=== PATIENT | female | born 1995 | race Caucasian/White ===

== ENCOUNTER → 2018-03-16 19:39 | Observation (INO) ==
--- NOTE | 2018-03-16 17:18 | OB/GYN Progress Note ---
Date of Encounter: 03/16/18 Time of Encounter: 17:11 - Assessment and Plan (1) 30 weeks gestation of Current Visit: Yes Status: Acute 4 hour monitoring Beside ultrasound by Dr Rao - [facility] IV fluid bolus + blood type Discharge home with PTL precautions Follow up in office with routine prental care and PRN (2) Fall Current Visit: Yes Status: Acute Qualifiers: Encounter type: initial encounter Qualified Code(s): W19.XXXA - Unspecified fall, initial encounter Subjective - Subjective Principal diagnosis: Fall at 1330 today Interval history: Ms Hobson is a at 30 weeks and 4 days that presents to triage with c/o a fall at 1330. She states that she did NOT hit her abdomen on her fall and landed on her hands and knees. She denies any contractions, bleeding, vaginal discharge, leaking of fluid, and headaches/visual disturbances. She denies any pain. She states positive movement. She has seen by Dr Weaver for her and denies any problems with this . 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 Pending 48 hour holter monitor. Antepartum ROS: movement normal Objective - Vital Signs Vital Signs: Intake and Output 03/16/18 03/16/18 03/16/18 07:59 15:59 23:59 Other: Weight 61.5 kg Patient Weight 03/16/18 23:59 Weight 61.5 kg - Exam FHR: auscultation normal, category 1 FHR comments: category I 145 baseline irregular infrequent contractions. Auscultation: bilateral: normal Abdomen: Present: normal appearance, soft, gravid Uterus: Present: normal. Absent: firm, tenderness
[~2018-03-16 19:39] MED LIST: Ringers Solution, Lactated 1,000 ML IVC ONE; Ringers Solution, Lactated 1,000 ML ONE; Terbutaline 1 MG/ML VIAL SQ ONE
== END | disposition home or self-care (01) ==
LOC: 1NENULAB
PROVIDERS: ADMIT Advanced Practice Midwife; ATTEND Advanced Practice Midwife

== ENCOUNTER 2018-05-17 03:45 | Inpatient (IN) ==
[2018-05-17] MEDS ORDERED: Metoclopramide 10 MG/2 ML VIAL IVP PRN (03:56)
[2018-05-17] MEDS ORDERED: Naloxone 0.4 MG/ML INJ IVP PRN (03:56)
[2018-05-17] MEDS ORDERED: *HR* Nalbuphine 10 MG/ML AMPUL IVP PRN (03:56)
[2018-05-17] MEDS ORDERED: Famotidine 20 MG/2 ML VIAL IVP PRN (03:56)
[2018-05-17 04:35] LABS: Basophils % 0.3 %; Eosinophils # 0.1 K/mcL (0.0-0.6); Hematocrit 31.6 % (35.3-44.9); Hemoglobin 10.4 g/dL (11.5-15.4); Immature Granulocytes % 0.4 % (0-4); Lymphocytes # 1.9 K/mcL (0.6-4.6); Lymphocytes % 28.3 %; Mean Corpuscular HGB Conc 32.9 g/dL (31.6-35.5); Mean Corpuscular Hemoglobin 29.5 pg (28.0-33.3); Mean Corpuscular Volume 89.8 fL (83.0-100.0); Mean Platelet Volume 11.1 fL (9.4-12.4); Monocytes # 0.5 K/mcL (0.0-1.3); Monocytes % 7.9 %; Neutrophils # 4.2 K/mcL (1.6-8.9); Platelet Count 167 K/mcL (140-400); Red Blood Count 3.52 M/mcL (3.82-4.97); Red Cell Distribution Width 15.5 % (11.5-14.5); Segmented Neutrophils % 62.1 %
[2018-05-17] MEDS: miSOPROStol 25 MCG TABLET PO PRN ×2 (04:40→09:01)
[2018-05-17 05:21] LABS: Amphetamine Screen,Urine Negative ng/mL (Cutoff=1000); Barbiturate Screen,Urine Negative ng/mL (Cutoff=200); Benzodiazepines Screen,Urine Negative ng/mL (Cutoff=200); Cannabinoid Screen,Urine Negative ng/mL (Cutoff = 50); Cocaine Screen,Urine Negative ng/mL (Cutoff= 300); Opiate Screen,Urine Negative ng/mL (Cutoff=300); Phencyclidine Screen,Urine Negative ng/mL (Cutoff=25)
--- NOTE | 2018-05-17 07:22 | OB/GYN History & Physical ---
Date of Encounter: 05/17/18 Time of Encounter: 07:16 Assessment and Plan (1) 39 weeks gestation of Current visit: Yes Status: Acute Admit for elective IOL. GBS negative. Cytotec at 0440. Epidural when requested. Anticipate . History of Present Illness Chief complaint: IOL HPI: Ms. Hobson is a 22 year old female presenting at 39w3d for schedule IOL. This has been complicated by intermittent episodes of tachycardia for which she had a holter monitor that was normal. She was diagnosed with [id number] at some point in the past. She reports dizziness when she is tachycardic. No other complications. No complaints this am. Good FM. Blood type A positive Rubella immune Serologies negative GBS negative Past Med Surg Social Fam HX - Past Medical History Medical history: non-contributory, cancer Additional medical history: melanoma (2012) Psychiatric history: no psych history - Past Surgical History Additional surgical history: lymph nodes removed from right side leg - Social History Smoking Status: Never smoker Smokeless Tobacco Status: No Alcohol use: none Drug use: none - Family History Mother Family Member Ethnicity: Non- Living Status: Still Living Hx Family Cardiac Disorders: Yes (HTN) Hx Family Respiratory Disorders: No Hx Family Cancer: No Hx Family GI Disorders: No Hx Family Endocrine Disorder: No Hx Family Neuromuscular Disorders: No Hx Family Neurologic Disorders: No Hx Family HEENT Disorders: No Hx Family Autoimmune Disorders: No Obstetrical History - Pregnancies : 1 Medications and Allergies Chewable Iron 30 mg Tablet 1 mg PO DAILY 03/16/18 [History] One Tablet 1 mg PO DAILY 03/16/18 [History] Allergy/AdvReac Type Severity Reaction Status Date / Time sulfamethoxazole Allergy Rash Verified 05/17/18 04:02 [From Bactrim] trimethoprim [From Bactrim] Allergy Rash Verified 05/17/18 04:02 Review of System OB All systems PM: reviewed and no additional remarkable complaints except as stated Exam - Constitutional Constitutional: well developed, well nourished - Lungs Respiratory exam: CTAB - Cardiovascular Cardiovascular exam: RRR - Abdomen Abdomen: Present: gravid, non tender - Extremities Extremities exam: normal inspection - Cervix Dilation: 1 Effacement: 40 Station: -2 - Anus/Rectum Anus/Rectum: Present: normal perianal skin Results Result Diagrams: 05/17/18 04:00 Abnormal lab results RBC 3.52 M/mcL (3.82-4.97) L 05/17/18 04:00 Hgb 10.4 g/dL (11.5-15.4) L 05/17/18 04:00 Hct 31.6 % (35.3-44.9) L 05/17/18 04:00 RDW 15.5 % (11.5-14.5) H 05/17/18 04:00 All other labs normal. - VTE Reasons for not Prescribing Prophylaxis: Treatment not Indicated - Low risk for VTE
--- NOTE | 2018-05-17 08:28 | OB Labor Progress Note ---
Date of Encounter: 05/17/18 Time of Encounter: 08:25 Labor Progress Note - Subjective Subjective: Patient resting comfortably in bed. - Vital Signs Vital Signs: VSS - Heart Tones Heart Tones: Baseline 140 - cat 2 tracing. Moderate variability, no accels no decels. - Mutual Mutual: uterine irritability, uterus palpates soft - Interventions Interventions: Intracervical copeladn unsuccessful. Patient and fetus tolerated well. - Plan Physician notified: No Plan: Continue routine labor management GBS negative Second dose cytotec Consider Intracervical copeland placed Patient may have nubain/epidural upon request Anticipate vaginal delivery POC per consult with Dr Cunha
--- NOTE | 2018-05-17 11:14 | OB Labor Progress Note ---
Date of Encounter: 05/17/18 Time of Encounter: 11:13 Labor Progress Note - Subjective Subjective: Patient states she is feeling her contractions; declines pain medication at this time - Vital Signs Vital Signs: VSS - Cervix Cervix: 1-2/80-90/-2 - Heart Tones Heart Tones: 150 cat 1 tracing - [place]: Irregular contractions - Plan Physician notified: No Plan: Continue routine labor management GBS negative Consider pitocin/AROM Patient may have nubain/epidural upon request Anticipate vaginal delivery POC per consult with Dr Cunha
[2018-05-17] MEDS ORDERED: Epidural Premix (fent/bupiv) 110 ML EP SCH (15:00)
--- NOTE | 2018-05-17 15:44 | OB Labor Progress Note ---
Date of Encounter: 05/17/18 Time of Encounter: 15:42 Labor Progress Note - Subjective Subjective: Patient resting comfortably in bed - Vital Signs Vital Signs: VSS - Cervix Cervix: 1-2/80/-2 moderate softness and moderate position - Heart Tones Heart Tones: 120 FHTs baseline cat 2 tracing; no accels no decles moderate variability - [place]: Contractions every 2-4 minutes - Interventions Interventions: Intracervical copeland placed without difficulty; patient and fetus tolerated well. intracervical inflated with 60cc sterile water - Plan Physician notified: No Plan: Continue routine labor management GBS negative Consider pitocin/AROM after cervical copeland displaced Patient may have nubain/epidural upon request Anticipate vaginal delivery POC per consult with Dr Cunha
[2018-05-17] MEDS: Ondansetron 4 MG/2 ML VIAL IVP PRN (16:28)
[2018-05-17] MEDS: Ringers Solution, Lactated 1,000 ML IVC SCH ×2 (18:21→20:28)
[2018-05-17] MEDS ORDERED: Bupivacaine-MPF 0.25% 10 ML VIAL EP ONE (18:27)
[2018-05-17] MEDS ORDERED: *HR* FentaNYL (PF) 100 MCG/2 ML VIAL EP ONE (18:27)
[2018-05-17] MEDS ORDERED: Lidocaine -MPF 1% 5 ML AMPUL ONE (18:30)
--- NOTE | 2018-05-17 19:06 | Anesthesia Evaluation PreOp ---
Date of Encounter: 05/17/18 Time of Encounter: 18:32 - Past History Planned Operation: STAR Cardiac History: Arrhythmia (isolated episode of WPW during this . All cardiac testing came back WNL) Pulmonary History: Denies Any Significant HX AUTHORIZATION NURSE History: Denies Any Significant HX Other Medical History: Denies Any Significant HX Anesthesia History: No Prior Anesthetic Complications (never had NA; denies personal and family h/o GA complications) : Yes Alcohol Use: none Drug use: none Medications and Allergies Chewable Iron 30 mg Tablet 1 mg PO DAILY 03/16/18 [History] One Tablet 1 mg PO DAILY 03/16/18 [History] Allergy/AdvReac Type Severity Reaction Status Date / Time sulfamethoxazole Allergy Rash Verified 05/17/18 04:02 [From Bactrim] trimethoprim [From Bactrim] Allergy Rash Verified 05/17/18 04:02 - Meds/Allergy Pre-op Review Medications Reviewed: Yes Allergies Reviewed: Yes Beta Blockers on Current Med List: No Anesthesia Results - Labs 05/17/18 04:00 Anesthesia Exam O2 Sat Height 1.65 m Height 1.65 m Weight 68.8 kg NPO (# of Hours): solids > 8hrs Pain Scale: 8 Pain Scale Used: Numeric (1 - 10) - HEENT Pupil (Motor): Pupils equal Mallampati: II Teeth: Normal Oral Opening: Greater than 3 - AUTHORIZATION NURSE LOC: Oriented AUTHORIZATION NURSE Motor: Normal RUE, Normal LUE, Normal RLE, Normal LLE, Normal Face AUTHORIZATION NURSE Sensory: Normal: RUE, LUE, RLE, LLE, Face - Cardiac Rhythm: Regular Murmur: None - Pulmonary Breath Sounds: bilateral Clear Respiratory Effort: Symmetrical Anesthesia Assess/Plan ASA Score: 2 Level of consciousness: Cooperative, Oriented, Restless Anesthetic Plan: Epidural Autologous Blood: No Monitoring Plan: Standard Monitors Recovery Plan: Other
--- NOTE | 2018-05-17 19:08 | Anesthesia Procedures ---
Addendum entered and electronically signed by Cheyanne Jackson CRNA 05/18/18 04:59: [id number] called to bedside pain level 7 in right side. epidural bolus 2% lidocaine with epi 5ml. states immediate relief Addendum entered and electronically signed by Cheyanne Jackson CRNA 05/18/18 00:15: 2300 called to bedside states pain level 10. epidural bolus 2%lidocaine 5ml states immediate relief Original Note: Date of Encounter: 05/17/18 Time of Encounter: 18:32 Procedures: Anesthesia - Epidural/Spinal Patient ID/Chart reviewed: Yes Patient examined: Yes OB Eval: Gestational age: 39 weeks 3 days OB Eval: : 1 OB Eval: Hx Para: 0 OB Eval: Contractions: Non-stressed pattern Consent Obtained: Yes Supplemental Oxygen: None/Room Air Site Prep: Aseptic Technique, Sterile prep and drape, Povidone-Iodine 1% Patient position: upright Local Anesthetic: Lidocaine 1% Amount of Local Anesthetic used: 3 Touhy Needle Gauge: 18 Touhy Needle Depth (cm): 4 Catheter Depth at Skin (cm): 9 Test Dose (1.5% Lido + Epi): Volume given (mls): 5 Test Dose Result: Negative Loading Dose: 0.25% Marcaine (mls): 5 Loading Dose: Fentanyl (mcg): 100 Loading Dose Administered: Thru Catheter Infusion Med: 0.125% Bupivacaine w/ 2 mcg/ml Fentanyl Infusion Rate (mls/hr): 14 (w/ demand bolus of 6mL q30min PRN) Catheter Secured in Place: Tegaderm, Tape Interspace Used: L4-L5 Loss of Resistance (MYESHA): Yes Blood: No CSF: No Paresthesia: No Procedure: successful on 1st attempt; patient tolerated procedure well; VSS Vitals + FHT's: see Aubrie CRUZ's electronic records for VS entry
--- NOTE | 2018-05-17 19:42 | OB Labor Progress Note ---
Date of Encounter: 05/17/18 Time of Encounter: 19:40 Labor Progress Note - Subjective Subjective: Patient comfortable with epidural - Cervix Cervix: 80/ - Heart Tones Heart Tones: Cat 1
--- NOTE | 2018-05-17 21:18 | OB Labor Progress Note ---
Date of Encounter: 05/17/18 Time of Encounter: 21:17 Labor Progress Note - Subjective Subjective: Patient comfortable with epidural - Cervix Cervix: 5-6/80/-1 - Heart Tones Heart Tones: Cat 1 - Interventions Interventions: AROM / BLOODY IUPC placed
--- NOTE | 2018-05-18 01:10 | OB Labor Progress Note ---
Date of Encounter: 05/18/18 Time of Encounter: 01:09 Labor Progress Note - Subjective Subjective: Patient comfortable with epidural. - Cervix Cervix: 5-6/90/-1 - Heart Tones Heart Tones: Cat 1 - Interventions Interventions: We will augment with Pitocin
[2018-05-18] MEDS ORDERED: Oxytocin 20 units/ LR 1000 mL 20 UNIT/1,000 ML BAG IVC SCH ×2 (01:15→19:55)
[2018-05-18] MEDS ORDERED: Lidocaine/EPI 1:200k 2% PF 20 ML VIAL ONE (04:35)
[2018-05-18] MEDS ORDERED: *HR* FentaNYL (PF) 100 MCG/2 ML VIAL ONE (07:45)
[2018-05-18] MEDS ORDERED: *HR* Ropivacaine/PF 0.2% 20 ML VIAL ONE (07:45)
[2018-05-18] MEDS: Ondansetron 4 MG/2 ML VIAL IVP PRN (07:54)
--- NOTE | 2018-05-18 08:16 | Anesthesia Progress Note ---
Date of Encounter: 05/18/18 Time of Encounter: 08:00 Anesthesia Note - Note Note: Called to patient bedside to evaluate breakthrough labor pain. Patient describes B/L abdominal pain w/ contractions. Confirmed catheter remains at 9cm clyde at skin. 10mL of 0.2% ropivicaine + 100mcg fentanyl administered. Patient reports significant improvement in pain score. VSS 05/18/18 08:14
[2018-05-18] MEDS ORDERED: Penicillin G Potassium 5,000,000 UNIT in 0.9 % Sodium Chloride Mini Bag 100 ML IVPB ONE (09:32)
[2018-05-18] MEDS ORDERED: Lidocaine -MPF 2% 5 ML VIAL ONE (10:51)
--- NOTE | 2018-05-18 11:07 | Anesthesia Progress Note ---
Addendum entered and electronically signed by Pio Field CRNA 05/18/18 11:13: patient w/ persistent N/V with contractions despite zofran administration. 10mg metoclopramide IVP administered Original Note: Date of Encounter: 05/18/18 Time of Encounter: 10:50 Anesthesia Note - Note Note: Called to patient bedside to evaluate breakthrough pain. Patient describes constant lower back pain. Confirmed catheter to be at 9cm clyde at skin. 10mL of 0.2% ropivicaine + 50mcg fentanyl administered. After 15 min, patient reports no significant improvement in pain. Additional 5mL of 2% lidocaine administered. Patient repositioned in bed and L&D nursing staff to use warm heating pad on patient's lower back. VSS 05/18/18 11:05
[2018-05-18] MEDS ORDERED: Metoclopramide 10 MG/2 ML VIAL IVP ONE (11:12)
[2018-05-18] MEDS ORDERED: Penicillin G Potassium 2,500,000 UNIT in 0.9 % Sodium Chloride 100 ML IVPB SCH (14:00)
--- NOTE | 2018-05-18 15:21 | OB/GYN Procedure Note ---
Delivery - Delivery Date: 05/18/18 Provider: Ceferino Cunha Intrapartum events: prolonged labor- > = 20hr Delivery induction: copeland, misoprostol Delivery augmentation: rupture of membranes, pitocin Delivery monitor: external FHT, external uterine, internal uterine Anesthesia: epidural Quantitated Blood Loss: 200 - (s) A Delivery Date: 05/18/18 Infant Delivery Time: 14:49 Presentation: vertex Position: JULIO Route of delivery: Gender: Male Viability: Viable Pounds: 7 Ounces: 9 at 1 minute: 5 at 5 mins: 9 at 10 mins: 9 Shoulder Dystocia: not encountered Specimens collected: cord blood Placenta: spontaneous Cord: nuchal cord, nuchal reduced - Repair Episiotomy: none Laceration Description: Perineal - 2nd Degree - Complications Delivery complications: meconium - Disposition Mom disposition: stable in LDR [place] disposition: stable in LDR - Comments Comments: Patient progressed to complete and on the perineum. Delivered a live male weighing 7 lbs. 9 oz. from right occiput anterior position. Placenta delivered spontaneously intact. Apgars were 59 and 9. Estimated blood loss was 200 mL. Delivery time was 1449. Second-degree laceration was repaired in anatomic fashion with 2-0 Vicryl and 3-0 Monocryl.
[2018-05-18] MEDS ORDERED: Ibuprofen 600 MG TABLET PO PRN (19:55)
[2018-05-18] MEDS ORDERED: Measles/Mumps/Rubella Vacc 0.5 ML VIAL SQ PRN (19:55)
[2018-05-18] MEDS ORDERED: Acetaminophen 325 MG TABLET PO PRN (19:55)
[2018-05-18] MEDS ORDERED: Lanolin 28 GM TUBE TP PRN (21:15)
[2018-05-18] MEDS ORDERED: Lanolin 7 G OINT...G. TP PRN (21:30)
[2018-05-19 04:31] LABS: Basophils % 0.2 %; Eosinophils % 0.2 %; Hematocrit 27.9 % (35.3-44.9); Immature Granulocytes % 0.5 % (0-4); Lymphocytes # 2.1 K/mcL (0.6-4.6); Lymphocytes % 13.2 %; Mean Corpuscular HGB Conc 32.3 g/dL (31.6-35.5); Mean Corpuscular Hemoglobin 29.2 pg (28.0-33.3); Mean Corpuscular Volume 90.6 fL (83.0-100.0); Mean Platelet Volume 11.2 fL (9.4-12.4); Monocytes # 0.9 K/mcL (0.0-1.3); Monocytes % 5.6 %; Neutrophils # 12.6 K/mcL (1.6-8.9); Platelet Count 140 K/mcL (140-400); Red Blood Count 3.08 M/mcL (3.82-4.97); Segmented Neutrophils % 80.3 %
[2018-05-19] MEDS ORDERED: [UNRECOGNIZED DRUG - OTHER] PO SCH (09:00)
[2018-05-19] MEDS ORDERED: Prenatal Vit/FA 1 EACH TABLET PO SCH (09:00)
[2018-05-19] MEDS ORDERED: IRON PO SCH (09:00)
[2018-05-19 09:07] VITALS: BP 97/63
--- NOTE | 2018-05-19 11:46 | Discharge Summary ---
Date of Encounter: 05/19/18 Time of Encounter: 11:40 - Discharge Diagnosis (1) Vaginal delivery Priority: Primary Status: Acute Comments: Pt meeting milestones. Discharge home today. - Discharge Medications Prescriptions: Ibuprofen [Motrin] 600 mg PO Q6HR PRN #30 tablet PRN Reason: Cramping Docusate [Colace] 100 mg PO BID #30 capsule Home Medications: One Tablet 1 mg PO DAILY 03/16/18 [History] Breast Pump [BREAST PUMP] 1 each .ROUTE AD #1 each 05/19/18 [Rx] Docusate [Colace] 100 mg PO BID #30 capsule 05/19/18 [Rx] Ibuprofen [Motrin] 600 mg PO Q6HR PRN #30 tablet 05/19/18 [Rx] Lanolin [Lansinoh] 1 appl TP Q4HR PRN oint...g. 05/19/18 [Rx] Allergies/Adverse Reactions: Allergy/AdvReac Type Severity Reaction Status Date / Time sulfamethoxazole Allergy Rash Verified 05/17/18 04:02 [From Bactrim] trimethoprim [From Bactrim] Allergy Rash Verified 05/17/18 04:02 Data Procedures and tests throughout hospitalization: Laboratory Tests 05/17/18 05/17/18 05/19/18 04:00 04:00 03:54 WBC 6.7 15.7 H D RBC 3.52 L 3.08 L Hgb 10.4 L 9.0 L Hct 31.6 L 27.9 L MCV 89.8 90.6 MCH 29.5 29.2 MCHC 32.9 32.3 RDW 15.5 H 16.0 H Plt Count 167 140 MPV 11.1 11.2 Immature Gran % 0.4 0.5 Seg Neutrophils % 62.1 80.3 Lymphocytes % 28.3 13.2 Monocytes % 7.9 5.6 Eosinophils % 1.0 0.2 Basophils % 0.3 0.2 Neutrophils # 4.2 12.6 H Lymphocytes # 1.9 2.1 Monocytes # 0.5 0.9 Eosinophils # 0.1 0.0 Basophils # 0.0 0.0 Urine Opiates Screen Negative Ur Barbiturates Screen Negative Ur Phencyclidine Scrn Negative Ur Amphetamines Screen Negative U Benzodiazepines Scrn Negative Urine Cocaine Screen Negative U Marijuana (THC) Screen Negative Ur Drug Screen Interp See Below Labs on day of discharge: Labs from last 24 hours 05/19/18 03:54 WBC 15.7 H D RBC 3.08 L Hgb 9.0 L Hct 27.9 L MCV 90.6 MCH 29.2 MCHC 32.3 RDW 16.0 H Plt Count 140 MPV 11.2 Immature Gran % 0.5 Seg Neutrophils % 80.3 Lymphocytes % 13.2 Monocytes % 5.6 Eosinophils % 0.2 Basophils % 0.2 Neutrophils # 12.6 H Lymphocytes # 2.1 Monocytes # 0.9 Eosinophils # 0.0 Basophils # 0.0 Date of admission: 05/17/18 03:55 Primary care physician: PCP NONE Consults: 05/18/18 19:55 Consult to Bi Technical Lead [CONS] Routine Comment: Vaginal delivery, consult needed Discharging clinician: Anu Mauricio Anticipated date of discharge: 05/19/18 - Patient Status Disposition: Home, Self-Care Condition: Good Functional capacity at discharge: independent ambulation Overall status at discharge: patient is progressing back to baseline - Discharge Instructions Follow Up With: NONE,PCP [Primary Care Provider] - Ceferino Cunha MD [Partnered Physician] - - Diet and Activity Activity: increase activity as tolerated Diet: regular diet Hospital Course Reason for admission: induction of labor Delivery: Episiotomy: none Laceration: 2nd degree Other procedures: none complications: none Discharge diagnosis: IUP at term delivered baby: male Hospital course: - Delivery Date: 05/18/18 Provider: Ceferino Cunha Intrapartum events: prolonged labor- > = 20hr Delivery induction: copeland, misoprostol Delivery augmentation: rupture of membranes, pitocin Delivery monitor: external FHT, external uterine, internal uterine Anesthesia: epidural Quantitated Blood Loss: 200 - (s) Infant A Infant Delivery Date: 05/18/18 Delivery Time: 14:49 Presentation: vertex Position: JULIO Route of delivery: Gender: Male Viability: Viable Pounds: 7 Ounces: 9 at 1 minute: 5 at 5 mins: 9 at 10 mins: 9 Shoulder Dystocia: not encountered Specimens collected: cord blood Placenta: spontaneous Cord: nuchal cord, nuchal reduced - Repair Episiotomy: none Laceration Description: Perineal - 2nd Degree - Complications Delivery complications: meconium - Disposition Mom disposition: home PPD1 [place] disposition: home with mother, Time Attestation: Total time spent providing and/or coordinating discharge services: Time Spent: Less than 30 minutes Exam - Constitutional Vitals: Temp Pulse Resp BP Pulse Ox 98.1 F 65 14 97/63 97 05/19/18 08:40 05/19/18 08:40 05/19/18 08:40 05/19/18 08:40 05/19/18 08:40 General appearance IM: A&O X 3 - Respiratory Respiratory exam: Present: CTAB - Cardiovascular Cardiovascular exam IM: Present: RRR - Uterine Tone: Firm Uterus Position: 2 Fingers Below Umbilicus - Extremities Exam Extremities exam IM: Present: pedal edema (mild bilaterally) - Neurological Exam Neurological exam: normal gait, oriented X3 - Psychiatric Additional comments: reports good mood
== END 2018-05-19 18:08 | disposition home or self-care (01) | DRG 806 ==
LOC: 1NENULAB 03:55 → 1NENUOBS 05-18 17:59
PROVIDERS: ADMIT Obstetrics & Gynecology; ATTEND Obstetrics & Gynecology

== ENCOUNTER → 2020-03-19 16:45 | Observation (INO) ==
[~2020-03-19 16:45] MED LIST changes: +FLU Vac QV 20-21 (6Month+)/PF 0.5 ML SYRINGE IM ONE; -Ringers Solution, Lactated 1,000 ML IVC ONE; -Ringers Solution, Lactated 1,000 ML ONE; -Terbutaline 1 MG/ML VIAL SQ ONE
== END | disposition home or self-care (01) ==
LOC: 1NENULAB
PROVIDERS: ADMIT Obstetrics & Gynecology; ATTEND Obstetrics & Gynecology

== ENCOUNTER 2020-03-31 14:34 | Inpatient (IN) ==
[2020-03-31 12:51] LABS: Basophils % 0.3 %; Eosinophils % 0.4 %; Hematocrit 35.9 % (35.3-44.9); Hemoglobin 11.7 g/dL (11.5-15.4); Immature Granulocytes % 0.3 % (0-4); Lymphocytes # 1.8 K/mcL (0.6-4.6); Lymphocytes % 16.9 %; Mean Corpuscular HGB Conc 32.6 g/dL (31.6-35.5); Mean Corpuscular Hemoglobin 28.6 pg (28.0-33.3); Mean Corpuscular Volume 87.8 fL (83.0-100.0); Mean Platelet Volume 10.4 fL (9.4-12.4); Monocytes # 0.6 K/mcL (0.0-1.3); Neutrophils # 8.1 K/mcL (1.6-8.9); Platelet Count 186 K/mcL (140-400); Red Blood Count 4.09 M/mcL (3.82-4.97); Red Cell Distribution Width 15.9 % (11.5-14.5); Segmented Neutrophils % 76.1 %; White Blood Count 10.6 K/mcL (4.3-11.1)
[2020-03-31] MEDS: Ringers Solution, Lactated 1,000 ML IVC SCH ×2 (12:53→14:01)
[~2020-03-31 14:34] MED LIST changes: +*HR* FentaNYL (PF) 100 MCG/2 ML VIAL EP ONE; +*HR* FentaNYL (PF) 100 MCG/2 ML VIAL IVP PRN; +Azithromycin 500 MG in 0.9 % Sodium Chloride 250 ML IVPB PRN; +EPHEDrine 50 MG/ML VIAL IVP PRN; +Epidural Premix (fent/bupiv) 110 ML EP ONE; +Epidural Premix (fent/bupiv) 110 ML EP SCH; -FLU Vac QV 20-21 (6Month+)/PF 0.5 ML SYRINGE IM ONE; +Famotidine 20 MG/2 ML VIAL IVP PRN; +Lidocaine 1% 20 ML MDV INFILT PRN; +Metoclopramide 10 MG/2 ML VIAL IVP PRN; +Naloxone 0.4 MG/ML INJ IVP PRN; +Ondansetron 4 MG/2 ML VIAL IVP PRN; +Penicillin G Potassium 5,000,000 UNIT in 0.9 % Sodium Chloride Mini Bag 100 ML IVPB ONE; +Ropivacaine/PF 0.2% 20 ML VIAL EP ONE
[2020-03-31] MEDS ORDERED: Oxytocin 20 units/ LR 1000 mL 20 UNIT/1,000 ML BAG IVC SCH ×2 (14:45→16:45)
[2020-03-31] MEDS ORDERED: Penicillin G Potassium 2,500,000 UNIT/105 ML MLS IVPB SCH (16:00)
[2020-03-31] MEDS ORDERED: Measles/Mumps/Rubella Vacc 0.5 ML VIAL SQ PRN (16:40)
[2020-03-31] MEDS ORDERED: Rho Immune Globulin 1,500 UNIT SYRINGE IM PRN (16:40)
[2020-03-31] MEDS ORDERED: Acetaminophen 325 MG TABLET PO PRN (16:40)
[2020-03-31 17:10] LABS: Amphetamine Screen,Urine Negative ng/mL (Cutoff=1000); Barbiturate Screen,Urine Negative ng/mL (Cutoff=200); Benzodiazepines Screen,Urine Negative ng/mL (Cutoff=200); Cannabinoid Screen,Urine Negative ng/mL (Cutoff = 50); Cocaine Screen,Urine Negative ng/mL (Cutoff= 300); Opiate Screen,Urine Negative ng/mL (Cutoff=300); Phencyclidine Screen,Urine Negative ng/mL (Cutoff=25)
[2020-03-31] MEDS ORDERED: *HR* FentaNYL (PF) 100 MCG/2 ML VIAL ONE ×2 (17:42→19:25)
[2020-03-31] MEDS ORDERED: Ropivacaine/PF 0.2% 20 ML VIAL ONE (19:25)
[2020-03-31] MEDS: Ibuprofen 600 MG TABLET PO PRN (19:46)
[2020-04-01 06:04] LABS: Basophils % 0.2 %; Eosinophils # 0.1 K/mcL (0.0-0.6); Eosinophils % 0.6 %; Hematocrit 31.9 % (35.3-44.9); Hemoglobin 10.6 g/dL (11.5-15.4); Immature Granulocytes % 0.4 % (0-4); Lymphocytes # 2.4 K/mcL (0.6-4.6); Lymphocytes % 23.5 %; Mean Corpuscular HGB Conc 33.2 g/dL (31.6-35.5); Mean Corpuscular Hemoglobin 29.3 pg (28.0-33.3); Mean Corpuscular Volume 88.1 fL (83.0-100.0); Mean Platelet Volume 9.9 fL (9.4-12.4); Monocytes # 0.6 K/mcL (0.0-1.3); Monocytes % 5.5 %; Platelet Count 152 K/mcL (140-400); Red Blood Count 3.62 M/mcL (3.82-4.97); Red Cell Distribution Width 15.9 % (11.5-14.5); Segmented Neutrophils % 69.8 %
[2020-04-01] MEDS: Ibuprofen 600 MG TABLET PO PRN (07:29)
[2020-04-01 08:09] VITALS: BP 97/60
[2020-04-01] MEDS ORDERED: Prenatal Vit/FA 1 EACH TABLET PO SCH (09:00)
== END 2020-04-01 17:32 | disposition home or self-care (01) | DRG 807 ==
LOC: 1NENULAB → 1NENUOBS 18:26
PROVIDERS: ADMIT Student in an Organized Health Care Education/Training Program; ATTEND Student in an Organized Health Care Education/Training Program